=== PATIENT | male | born 1950 | race Caucasian/White ===

== ENCOUNTER 2020-09-30 18:43 | IRF | payer MEDICARE, OTHER, SELFPAY ==
[2020-09-30 18:40] VITALS: BP 168/87; PULSE 68; RESP 16; TEMP 35.9; O2SAT 96
--- NOTE | 2020-09-30 19:16 | ADMGEN ---
This patient, Nick Castro, was admitted to [facility] Room 225-01. Patient/family oriented to hospital policies and general routines including ID bracelet, bed and alarms, visiting hours, pain management, procedures, bathroom and other care routines, personal items, smoking policy, room service/diet, and visiting hours. Information on how to activate the Rapid Response Team has been discussed. Patient/Family are encouraged to report perceived risks to care and to ask questions if they do not understand what they are told or what they should do.
--- NOTE | 2020-09-30 19:33 | ADMGEN ---
This patient, Nick Castro, [facility]. Patient/family oriented to hospital policies and general routines including ID bracelet, bed and alarms, visiting hours, pain management, procedures, bathroom and other care routines, personal items, smoking policy, room service/diet, and visiting hours. Information on how to activate the Rapid Response Team has been discussed. Patient/Family are encouraged to report perceived risks to care and to ask questions if they do not understand what they are told or what they should do. TDialRNC
[2020-09-30 19:35] VITALS: BMI 24.0
[2020-09-30 21:23] LABS: Glucose Point of Care 268 mg/dl (65-105)
[2020-09-30 22:00] VITALS: BP 154/86; PULSE 64; RESP 16; TEMP 35.9; O2SAT 99
[2020-10-01 06:00] VITALS: BP 182/93; PULSE 73; RESP 16; TEMP 35.9; O2SAT 97
[2020-10-01 06:51] LABS: Glucose Point of Care 216 mg/dl (65-105)
[2020-10-01 08:00] VITALS: PULSE 73; RESP 16; O2SAT 97
[2020-10-01] MEDS: metFORMIN HCL 500 MG TABLET 1000 MG PO ×2 (09:39→16:56)
[2020-10-01 09:40] VITALS: PULSE 73
[2020-10-01] MEDS: hydroCHLOROthiazide 12.5 MG CAPSULE PO (09:40)
[2020-10-01] MEDS: CLOPIDOGREL BISULFATE 75 MG TABLET PO (09:40)
[2020-10-01] MEDS: glyBURIDE 2.5 MG TABLET PO ×2 (09:40→16:55)
[2020-10-01] MEDS: ASPIRIN 81 MG CHEWABLE TABLET PO (09:40)
[2020-10-01] MEDS: MULTIVITAMINS /C LUTEIN (CENTRUM SILVER) TABLET *BKC 1 TAB PO (09:40)
[2020-10-01] MEDS: atenoloL 25 MG TABLET PO (09:40)
[2020-10-01] MEDS: amLODIPine BESYLATE 2.5 MG TABLET PO (09:41)
[2020-10-01 12:03] LABS: Glucose Point of Care 377 mg/dl (65-105)
--- NOTE | 2020-10-01 13:00 | WPDREHABHP ---
H&P: HPI History of Present Illness Date/Time: 10/01/20 13:00 Chief Complaint: cva Narrative: HISTORY OF PRESENT ILLNESS: The patient's primary rehab impairment category is 0 1 stroke The etiologic diagnosis is left basal ganglia infarct I saw this patient [id number] on 10/01/2020 The patient is a 70-year-old male past medical history of anxiety, diabetes mellitus, hypertension, hepatitis-A, rectal dysfunction, peripheral neuropathy, prostatitis, and BPH who presented to [facility] on 09/28/2020 with right-sided weakness, facial droop, and dysarthria. The patient will cover on 10/03 in the morning with presentation of slurred speech and right-sided weakness at 9:30 a.m. the patient woke up and had poor motor movement. brought him to the emergency room. CT of the head was negative for intracranial abnormalities. CTA of the head did not show significant stenosis. Chest x-ray was negative. MRI of the brain showed infarct in left basal ganglia with no acute cranial hemorrhage. Tele neurology was consulted the patient was placed on aspirin Plavix and a statin. Speech therapy saw the patient and a bedside swallow approved the patient to be on a regular consistency diet with thin liquids. Patient continued to have right-sided weakness and dysarthria. COVID the patient has not traveled outside the [place] or had contact with someone who is ill that his travel outside the [place] in the past 21 days. Patient has not traveled to an area of the [place] that is experiencing no transmission the Coronavirus and has not had close personal contact with anyone that has COVID. Patient does not have a fever nor lower respiratory illness. Therapy was initiated at the acute facility and the patient transferred to us from [facility] on 09/30/2020 FALLS OR SURGERIES: The patient has had [no] major surgeries in the 100 days prior to admission. He has had falls in the past 6 months but none with injury PRIOR LEVEL OF FUNCTION: Eating was INDEPENDENT Oral Care was INDEPENDENT Toileting Hygiene was INDEPENDENT Shower/Bathing was INDEPENDENT Upper Body Dressing was INDEPENDENT Lower Body Dressing was INDEPENDENT Donning/[place] Footwear was INDEPENDENT Rolling Left and Right was INDEPENDENT Sit to Lying was INDEPENDENT Lying to Sitting was INDEPENDENT Sit to Stand was INDEPENDENT Bed to Chair Transfers was INDEPENDENT Toilet Transfers was INDEPENDENT Walking was INDEPENDENT >500 feet with NO DEVICE Wheelchair Mobility was NOT APPLICABLE PRIOR TO ADMISSION Stairs were INDEPENDENT CURRENT LEVEL OF FUNCTION: Eating was independent Oral Care was supervision or touching assistance Toileting Hygiene was partial to moderate assist Shower/Bathing was partial to moderate assist Upper Body Dressing was supervision or touching assist Lower Body Dressing was partial to moderate assist Donning/[place] Footwear was partial to moderate assist Rolling Left and Right was supervision or touching assist Sit to Lying was supervision or touching assist Lying to Sitting was supervision or touching assist Sit to Stand was partial to mod assist Bed to Chair Transfers were partial to mod assist Toilet Transfers were partial to mod assist Walking was 20 ft with a rolling walker and partial to mod assist Wheelchair Mobility was not test Stairs were not tested GOALS: Our therapists will evaluate the patient and establish the goals. However, upon pre-admission screening, the expected goals were to be [INDEPENDENT] with self-care, [INDEPENDENT] with transfers, and [INDEPENDENT] with functional mobility so that the patient can return home. ESTIMATED LENGTH OF STAY: [10-14 days] POTENTIAL BARRIERS TO DISCHARGE: [ [Family needs training.] [Severity of condition.] ACTIVE CO-MORBIDITIES PRESENT ON ADMISSION: Active co-morbidities include hypertension, right hemiplegia, dysarthria, diabetes with hyperglycemi
[2020-10-01 13:50] VITALS: BMI 24.0
[2020-10-01 14:00] VITALS: BP 173/83; PULSE 59; RESP 20; TEMP 36.4; O2SAT 100
--- NOTE | 2020-10-01 14:38 | PCNSR ---
On 10/01/20, the student, Erna Daniels, provided care and completed [facility] documentation on this patient. I have reviewed the student's documentation and agree with the findings.
--- NOTE | 2020-10-01 14:56 | RPD ---
INDIVIDUALIZED PLAN OF CARE FOR Nick Castro Brief Synthesis of Pre-Admission Screen, Post-Admission Evaluation and Therapy Evaluations: The patient presents to rehab with a focal 1.9 cm infarct left basal ganglia. Comorbidities include hypertension, right-sided weakness, facial droop, moderate dysarthria, hypertension, hypokalemia, diabetes mellitus with hyperglycemia, anxiety, erectile dysfunction, peripheral neuropathy, prostatitis, and BPH. The patient requires physician services for medical oversight, and coordination of care. Emotional needs will be monitored as depression is a common sequelae of stroke. The patient needs physician monitoring and treatment of right-sided weakness, facial droop, dysarthria, hypertension, hypokalemia, diabetes mellitus, monitoring for adverse reactions to new medications, and monitoring of infection. The patient requires nursing services for frequent neuro checks, anticoagulation therapy, medication management and education, pressure relief and skin care management, monitoring of labs, bowel and bladder training, diabetes management and education, and fall/safety precautions. Deficits include: ADLs, Balance, Cognition, Endurance, Family Training/Education, Mobility, ROM, Safety, Speech, Strength, and Transfers Camp Manager/Case Management for: Discharge Planning and Patient/Family Counseling Physical Therapy: 5 days per week for 60 minutes. Treatments may include: Therapeutic Exercise, Gait Training, Neuromuscular Re-education, Transfer Training, Community Reintegration, Bed Mobility, Patient/Family Education, Wheelchair Mobility Group Therapy/Concurrent Therapy Rationales: -Improve attention span during functional activities in a distracted environment. -Enhance problem solving and/or adequate judgment skills during functional activities in a distracted environment. -Promote increased safety awareness in a distracted environment to reduce fall risk with functional tasks, transfers, and ambulation to allow a more safe, self-sufficient return to the home environment. -Improve dynamic balance skills to promote safety and independence with functional activities in a distracted environment for maximum gain. Occupational Therapy: 5 days per week for 60 minutes. Treatments may include: Therapeutic Exercise, Therapeutic Activity, Cognitive Training, Self-Care Transfer Training, Community Reintegration, Home Management, Patient/Family Education, Wheelchair Mobility Training, Energy Conservation Training Group Therapy/Concurrent Therapy Rationales: -Allow therapist to observe and teach generalization and carry-over of skills learned in individual therapy. -Enhance problem solving and sequencing skills during therapeutic activities in a distracted environment. -Promote increased safety awareness in a realistic setting to reduce fall risk with functional tasks due to visual and verbal distractions. -Increase functional level with ADLs, ADL transfers and use of adaptive equipment through therapeutic activities with others while promoting safety to allow a more safe, self-sufficient return home. Speech Therapy: 5 days per week for 60 minutes. Treatments may include: Dysphasia Therapy, Speech/Language/Communication Therapy, Cognitive Training, Patient/Family Education Group Therapy/Concurrent Therapy - Rationale: -Allow therapist to observe and teach generalization and carry-over of skills learned in individual therapy. -Improve comprehension skills with complex or abstract ideas through discussion in a realistic setting. -Enhance problem solving skills with complex issues during activities in a distracted environment. -Promote increased memory skills and concentration in a distracted environment for a safe transition home. -Improve attention and focus with language/communication skills in a realistic and supportive therapeutic setting. -Allow for practice of expression of basic needs and ideas through functional activities with others.
[2020-10-01 16:32] LABS: Glucose Point of Care 126 mg/dl (65-105)
[2020-10-01 20:00] VITALS: PULSE 57; RESP 16; O2SAT 99
[2020-10-01 21:01] VITALS: BP 148/81; PULSE 57; RESP 16; TEMP 36.1; O2SAT 99
[2020-10-01] MEDS: ATORVASTATIN 40 MG TABLET PO (21:36)
[2020-10-01 22:29] LABS: Glucose Point of Care 102 mg/dl (65-105)
[2020-10-02 05:29] LABS: Anion Gap 6 mmol/L (8-16); Blood Urea Nitrogen 16 mg/dL (9-20); Carbon Dioxide 31 mmol/L (22-30); Chloride 101 mmol/L (98-107); Estimated CRCL calculation 75 ml/min; Estimated Glomerular Filt Rate > 60; Glucose 118 mg/dL (75-110); Potassium 3.7 mmol/L (3.4-5.0); Sodium 138 mmol/L (137-145)
[2020-10-02 05:35] LABS: Basophils Absolute Auto 0.1 K/mm3 (0.0-0.1); Basophils Percent Auto 0.7 % (0.2-1.2); Eosinophils Absolute Auto 0.4 K/mm3 (0-0.3); Eosinophils Percent Auto 5.2 % (0-4.4); Hematocrit 40.1 % (42.0-52.0); Hemoglobin 13.7 g/dL (14.0-18.0); Immature Granulocyte Absolute 0.03 K/mm3 (0.00-0.031); Immature Granulocyte Percent A 0.4 % (0-0.5); Lymphocytes Absolute Auto 2.29 K/mm3 (0.9-3.2); Lymphocytes Percent Auto 30.3 % (18.3-44.2); Mean Corpuscular HGB Conc 34.2 g/dl (32-36); Mean Corpuscular Hemoglobin 28.4 pg (26-34); Mean Corpuscular Volume 83.2 fl (80-100); Mean Platelet Volume 11.7 fl (7.4-10.4); Monocytes Absolute Auto 0.7 K/mm3 (0.1-0.6); Monocytes Percent Auto 9.7 % (2.6-8.5); Neutrophils Absolute Auto 4.1 K/mm3 (1.3-6.7); Neutrophils Percent Auto 53.7 % (45.5-73.1); Platelet Count Result 220 k/mm3 (150-375); Red Blood Count 4.82 M/mm3 (4.6-6.20); Red Cell Distribution Width 12.2 % (11.5-14.5); White Blood Count 7.6 K/mm3 (4.5-10.0)
[2020-10-02 05:52] VITALS: BP 144/72; PULSE 53; RESP 16; TEMP 35.8; O2SAT 100
[2020-10-02 06:52] LABS: Glucose Point of Care 151 mg/dl (65-105)
--- NOTE | 2020-10-02 08:47 | WPDNEURORHBP ---
Subjective Date/time seen: 10/02/20 08:47 Interval history: The etiologic diagnosis is left basal ganglia infarct The patient is a 70-year-old male past medical history of anxiety, diabetes mellitus, hypertension, hepatitis-A, rectal dysfunction, peripheral neuropathy, prostatitis, and BPH who presented to [facility] on 09/28/2020 with right-sided weakness, facial droop, and dysarthria. The patient will cover on 10/03 in the morning with presentation of slurred speech and right-sided weakness at 9:30 a.m. the patient woke up and had poor motor movement. brought him to the emergency room. CT of the head was negative for intracranial abnormalities. CTA of the head did not show significant stenosis. Chest x-ray was negative. MRI of the brain showed infarct in left basal ganglia with no acute cranial hemorrhage. Tele neurology was consulted the patient was placed on aspirin Plavix and a statin. Speech therapy saw the patient and a bedside swallow approved the patient to be on a regular consistency diet with thin liquids. Patient continued to have right-sided weakness and dysarthria. Therapy was initiated at the acute facility and the patient transferred to us from [facility] on 09/30/2020 Patient voices no complaints. Blood sugars are better. Review of Systems Review of Systems: All systems reviewed & are unremarkable except as noted in HPI and below Functional Status Ambulation Ability Ability to Ambulate 10 Feet: Standby Assistance Ability to Ambulate 50 Feet With 2 Turns: Contact Guard Ability to Ambulate 150 Feet: Contact Guard Ambulation Assistive Devices: None Transfers Ability Ability to Transfer In/Out of Chair: Contact Guard Exam Const: General: no acute distress HENMT: Other: Right facial droop is noted. External ocular muscles are intact. Speech is dysarthric. Neck: Neck: supple Cardio: Rate: regular rate Rhythm: regular rhythm GI: Auscultation: normal bowel sounds Skin: General skin exam: no rashes or lesions noted Neuro: Other: Patient demonstrates 4/5 strength on the right upper and lower extremities fine motor deficits are noted. Mild motor apraxia is present. Left upper and left lower extremity strength are 5/5 Psych: Affect: normal affect Objective Data Vital Signs Vital Signs: Vital Signs - 24 hr 10/01/20 09:40 10/01/20 14:00 10/01/20 20:00 Temperature 36.4 C Pulse Rate 73 59 L 57 L Respiratory Rate 20 16 Blood Pressure 173/83 H Pulse Oximetry 100 99 10/01/20 21:01 10/02/20 05:52 Temperature 36.1 C L 35.8 C L Pulse Rate 57 L 53 L Respiratory Rate 16 16 Blood Pressure 148/81 H 144/72 H Pulse Oximetry 99 100 Intake/Output Intake/Output: Intake & Output 09/29/20 09/30/20 10/01/20 10/02/20 23:59 23:59 23:59 23:59 Intake Total 720 Balance 720 Meds/Results Medications: Active Medications Generic Name Dose Route Start Last Admin Trade Name Freq PRN Reason Stop Dose Admin Acetaminophen 650 mg 09/30/20 23:00 Acetaminophen 325 Mg Tablet PO Q4H PRN Headache Amlodipine Besylate 2.5 mg 10/01/20 09:00 10/01/20 09:41 Amlodipine Besylate 2.5 Mg Tablet PO 2.5 mg QAM FILIBERTO Administration Aspirin 81 mg 10/01/20 08:00 10/01/20 09:40 Aspirin 81 Mg Chewable Tablet PO 81 mg DAILY@0800 FILIBERTO Administration Atenolol 25 mg 10/01/20 09:00 10/01/20 09:40 Atenolol 25 Mg Tablet PO 25 mg DAILY FILIBERTO Administration Atorvastatin Calcium 40 mg 10/01/20 22:20 10/01/20 21:36 Atorvastatin 40 Mg Tablet PO 40 mg HS FILIBERTO Administration Bisacodyl 5 mg 09/30/20 23:05 Bisacodyl 5 Mg Tablet Ec PO QAM PRN Constipation Chlorpromazine HCl 25 mg 09/30/20 22:40 Chlorpromazine Hcl 25 Mg Tablet PO Q12H PRN for hiccups Clopidogrel Bisulfate 75 mg 10/01/20 09:00 10/01/20 09:40 Clopidogrel Bisulfate 75 Mg Tablet PO 10/19/20 09:01 75 mg QAM [facility]
[2020-10-02 09:52] VITALS: PULSE 53
[2020-10-02] MEDS: ASPIRIN 81 MG CHEWABLE TABLET PO (09:52)
[2020-10-02] MEDS: amLODIPine BESYLATE 2.5 MG TABLET PO (09:52)
[2020-10-02] MEDS: atenoloL 25 MG TABLET PO (09:52)
[2020-10-02] MEDS: metFORMIN HCL 500 MG TABLET 1000 MG PO ×2 (09:52→17:47)
[2020-10-02] MEDS: glyBURIDE 2.5 MG TABLET PO ×2 (09:52→17:47)
[2020-10-02] MEDS: hydroCHLOROthiazide 12.5 MG CAPSULE PO (09:53)
[2020-10-02] MEDS: MULTIVITAMINS /C LUTEIN (CENTRUM SILVER) TABLET *BKC 1 TAB PO (09:53)
[2020-10-02] MEDS: CLOPIDOGREL BISULFATE 75 MG TABLET PO (09:53)
[2020-10-02 12:20] LABS: Glucose Point of Care 249 mg/dl (65-105)
[2020-10-02 14:00] VITALS: BP 143/73; PULSE 54; RESP 14; TEMP 36.2; O2SAT 100
[2020-10-02 17:08] LABS: Glucose Point of Care 206 mg/dl (65-105)
[2020-10-02 20:00] VITALS: PULSE 55; RESP 16; O2SAT 97
[2020-10-02] MEDS: ATORVASTATIN 40 MG TABLET PO (21:49)
[2020-10-02 21:54] LABS: Glucose Point of Care 194 mg/dl (65-105)
[2020-10-02 22:00] VITALS: BP 163/88; PULSE 55; RESP 16; TEMP 36.3; O2SAT 97
[2020-10-03 06:00] VITALS: BP 148/69; PULSE 55; RESP 16; TEMP 36.3; O2SAT 98
[2020-10-03 06:12] LABS: Glucose Point of Care 134 mg/dl (65-105)
--- NOTE | 2020-10-03 09:19 | WPDNEURORHBP ---
Subjective Date/time seen: 10/03/20 09:19 Interval history: The etiologic diagnosis is left basal ganglia infarct The patient is a 70-year-old male past medical history of anxiety, diabetes mellitus, hypertension, hepatitis-A, rectal dysfunction, peripheral neuropathy, prostatitis, and BPH who presented to [facility] on 09/28/2020 with right-sided weakness, facial droop, and dysarthria. The patient will cover on 10/03 in the morning with presentation of slurred speech and right-sided weakness at 9:30 a.m. the patient woke up and had poor motor movement. brought him to the emergency room. CT of the head was negative for intracranial abnormalities. CTA of the head did not show significant stenosis. Chest x-ray was negative. MRI of the brain showed infarct in left basal ganglia with no acute cranial hemorrhage. Tele neurology was consulted the patient was placed on aspirin Plavix and a statin. Speech therapy saw the patient and a bedside swallow approved the patient to be on a regular consistency diet with thin liquids. Patient continued to have right-sided weakness and dysarthria. Therapy was initiated at the acute facility and the patient transferred to us from [facility] on 09/30/2020 10/03/2020 Patient voices no complaints. Blood sugars are better. Nick demonstrates impulsivity and is at high risk of falls. Spoke with patient regarding safety and impulsivity related to his stroke. Review of Systems Review of Systems: All systems reviewed & are unremarkable except as noted in HPI and below Functional Status Ambulation Ability Ability to Ambulate 10 Feet: Standby Assistance Ability to Ambulate 50 Feet With 2 Turns: Contact Guard Ability to Ambulate 150 Feet: Contact Guard Ambulation Assistive Devices: None Transfers Ability Ability to Transfer In/Out of Chair: Contact Guard Exam Const: General: no acute distress HENMT: Other: Right facial droop is noted. External ocular muscles are intact. Speech is dysarthric. Heart rate and rhythm is regular. Lungs are clear to auscultation Neck: Neck: supple Cardio: Rate: regular rate Rhythm: regular rhythm GI: Auscultation: normal bowel sounds Skin: General skin exam: no rashes or lesions noted Neuro: Other: Patient demonstrates 4/5 strength on the right upper and lower extremities fine motor deficits are noted. Mild motor apraxia is present. Left upper and left lower extremity strength are 5/5. Ongoing safety concerns Psych: Affect: normal affect Objective Data Vital Signs Vital Signs: Vital Signs - 24 hr 10/02/20 09:52 10/02/20 14:00 10/02/20 20:00 Temperature 36.2 C L Pulse Rate 53 L 54 L 55 L Respiratory Rate 14 16 Blood Pressure 143/73 H Pulse Oximetry 100 97 10/02/20 22:00 10/03/20 06:00 Temperature 36.3 C L 36.3 C L Pulse Rate 55 L 55 L Respiratory Rate 16 16 Blood Pressure 163/88 H 148/69 H Pulse Oximetry 97 98 Intake/Output Intake/Output: Intake & Output 09/30/20 10/01/20 10/02/20 10/03/20 23:59 23:59 23:59 23:59 Intake Total 720 600 240 Balance 720 600 240 Meds/Results Medications: Active Medications Generic Name Dose Route Start Last Admin Trade Name Freq PRN Reason Stop Dose Admin Acetaminophen 650 mg 09/30/20 23:00 Acetaminophen 325 Mg Tablet PO Q4H PRN Headache Amlodipine Besylate 2.5 mg 10/01/20 09:00 10/02/20 09:52 Amlodipine Besylate 2.5 Mg Tablet PO 2.5 mg QAM FILIBERTO Administration Aspirin 81 mg 10/01/20 08:00 10/02/20 09:52 Aspirin 81 Mg Chewable Tablet PO 81 mg DAILY@0800 FILIBERTO Administration Atenolol 25 mg 10/01/20 09:00 10/02/20 09:52 Atenolol 25 Mg Tablet PO 25 mg DAILY FILIBERTO Administration Atorvastatin Calcium 40 mg 10/01/20 22:20 10/02/20 21:49 Atorvastatin 40 Mg Tablet PO 40 mg HS FILIBERTO Administration Bisacodyl 5 mg 09/30/20 23:05 Bisacodyl 5 Mg Tablet Ec PO QAM PRN Constipatio
[2020-10-03] MEDS: glyBURIDE 2.5 MG TABLET PO ×2 (09:30→17:46)
[2020-10-03] MEDS: ASPIRIN 81 MG CHEWABLE TABLET PO (09:30)
[2020-10-03] MEDS: metFORMIN HCL 500 MG TABLET 1000 MG PO ×2 (09:30→17:46)
[2020-10-03 09:31] VITALS: PULSE 55
[2020-10-03] MEDS: MULTIVITAMINS /C LUTEIN (CENTRUM SILVER) TABLET *BKC 1 TAB PO (09:31)
[2020-10-03] MEDS: hydroCHLOROthiazide 12.5 MG CAPSULE PO (09:31)
[2020-10-03] MEDS: atenoloL 25 MG TABLET PO (09:31)
[2020-10-03] MEDS: amLODIPine BESYLATE 2.5 MG TABLET PO (09:31)
[2020-10-03] MEDS: CLOPIDOGREL BISULFATE 75 MG TABLET PO (09:32)
[2020-10-03 11:45] LABS: Glucose Point of Care 297 mg/dl (65-105)
[2020-10-03 14:00] VITALS: BP 138/73; PULSE 64; RESP 16; TEMP 36; O2SAT 99
[2020-10-03 17:30] LABS: Glucose Point of Care 176 mg/dl (65-105)
[2020-10-03 20:32] LABS: Glucose Point of Care 184 mg/dl (65-105)
[2020-10-03] MEDS: ATORVASTATIN 40 MG TABLET PO (21:48)
[2020-10-03 22:00] VITALS: BP 154/77; PULSE 58; RESP 18; TEMP 36.1; O2SAT 98
[2020-10-04 06:00] VITALS: BP 151/82; PULSE 59; RESP 16; TEMP 36.3; O2SAT 100
[2020-10-04 06:19] LABS: Glucose Point of Care 153 mg/dl (65-105)
[2020-10-04] MEDS: MULTIVITAMINS /C LUTEIN (CENTRUM SILVER) TABLET *BKC 1 TAB PO (09:13)
[2020-10-04] MEDS: amLODIPine BESYLATE 2.5 MG TABLET PO (09:13)
[2020-10-04] MEDS: CLOPIDOGREL BISULFATE 75 MG TABLET PO (09:14)
[2020-10-04] MEDS: ASPIRIN 81 MG CHEWABLE TABLET PO (09:14)
[2020-10-04] MEDS: hydroCHLOROthiazide 12.5 MG CAPSULE PO (09:14)
[2020-10-04] MEDS: metFORMIN HCL 500 MG TABLET 1000 MG PO ×2 (09:14→17:23)
[2020-10-04 09:15] VITALS: PULSE 59
[2020-10-04] MEDS: glyBURIDE 2.5 MG TABLET PO ×2 (09:15→17:23)
[2020-10-04] MEDS: atenoloL 25 MG TABLET PO (09:15)
[2020-10-04 11:26] LABS: Glucose Point of Care 295 mg/dl (65-105)
[2020-10-04 14:00] VITALS: BP 137/78; PULSE 81; RESP 20; TEMP 36.2; O2SAT 100
[2020-10-04 17:02] LABS: Glucose Point of Care 150 mg/dl (65-105)
[2020-10-04 21:54] VITALS: BP 148/91; PULSE 66; RESP 14; TEMP 36.2; O2SAT 97
[2020-10-04] MEDS: ATORVASTATIN 40 MG TABLET PO (22:30)
[2020-10-05 05:59] VITALS: BP 161/87; PULSE 60; RESP 18; TEMP 36.3; O2SAT 97
[2020-10-05 06:49] LABS: Glucose Point of Care 170 mg/dl (65-105)
[2020-10-05 08:00] VITALS: PULSE 64; RESP 20; O2SAT 97
[2020-10-05 09:05] VITALS: PULSE 60
[2020-10-05] MEDS: glyBURIDE 2.5 MG TABLET PO ×2 (09:05→17:39)
[2020-10-05] MEDS: ASPIRIN 81 MG CHEWABLE TABLET PO (09:05)
[2020-10-05] MEDS: atenoloL 25 MG TABLET PO (09:05)
[2020-10-05] MEDS: CLOPIDOGREL BISULFATE 75 MG TABLET PO (09:06)
[2020-10-05] MEDS: metFORMIN HCL 500 MG TABLET 1000 MG PO ×2 (09:06→17:39)
[2020-10-05] MEDS: amLODIPine BESYLATE 2.5 MG TABLET PO (09:06)
[2020-10-05] MEDS: MULTIVITAMINS /C LUTEIN (CENTRUM SILVER) TABLET *BKC 1 TAB PO (09:07)
[2020-10-05] MEDS: hydroCHLOROthiazide 12.5 MG CAPSULE PO (09:07)
--- NOTE | 2020-10-05 11:37 | WPDNEURORHBP ---
Subjective Date/time seen: 10/05/20 11:37 Interval history: The etiologic diagnosis is left basal ganglia infarct The patient is a 70-year-old male past medical history of anxiety, diabetes mellitus, hypertension, hepatitis-A, erectile dysfunction, peripheral neuropathy, prostatitis, and BPH who presented to [facility] on 09/28/2020 with right-sided weakness, facial droop, and dysarthria. The patient woke up on 10/03 in the morning with presentation of slurred speech and right-sided weakness at 9:30 a.m. the patient woke up and had poor motor movement. brought him to the emergency room. CT of the head was negative for intracranial abnormalities. CTA of the head did not show significant stenosis. Chest x-ray was negative. MRI of the brain showed infarct in left basal ganglia with no acute cranial hemorrhage. Tele neurology was consulted the patient was placed on aspirin Plavix and a statin. Speech therapy saw the patient and a bedside swallow approved the patient to be on a regular consistency diet with thin liquids. Patient continued to have right-sided weakness and dysarthria. Therapy was initiated at the acute facility and the patient transferred to us from [facility] on 09/30/2020 10/03/2020 Patient voices no complaints. Blood sugars are better. Nick demonstrates impulsivity and is at high risk of falls. Spoke with patient regarding safety and impulsivity related to his stroke. 10/05/20 Patient seen during . Dysarthria persists.Patient lacks awareness of safety issues. Motor is recovering. Patient voices not complaints. Review of Systems Review of Systems: All systems reviewed & are unremarkable except as noted in HPI and below Functional Status Ambulation Ability Ability to Ambulate 10 Feet: Standby Assistance Ability to Ambulate 50 Feet With 2 Turns: Contact Guard Ability to Ambulate 150 Feet: Contact Guard Ambulation Assistive Devices: None Transfers Ability Ability to Transfer In/Out of Chair: Standby Assistance Exam Narrative: Exam Narrative: asymmetric face noted. Extraocular muscles are intact. Speech reveals dysarthria. Heart rate and rhythm is regular. Lungs are clear to auscultation. Left upper and left lower extremity strength are 4-5 right upper right lower extremity strength are 4- out of 5. [id number] transfers are at supervision to standby assistance. Objective Data Vital Signs Vital Signs: Vital Signs - 24 hr 10/04/20 14:00 10/04/20 21:54 10/05/20 05:59 Temperature 36.2 C L 36.2 C L 36.3 C L Pulse Rate 81 66 60 Respiratory Rate 20 14 18 Blood Pressure 137/78 148/91 H 161/87 H Pulse Oximetry 100 97 97 10/05/20 08:00 10/05/20 09:05 Temperature Pulse Rate 64 60 Respiratory Rate 20 Blood Pressure Pulse Oximetry 97 Intake/Output Intake/Output: Intake & Output 10/02/20 10/03/20 10/04/20 10/05/20 23:59 23:59 23:59 23:59 Intake Total 600 1080 720 240 Balance 600 1080 720 240 Meds/Results Medications: Active Medications Generic Name Dose Route Start Last Admin Trade Name Freq PRN Reason Stop Dose Admin Acetaminophen 650 mg 09/30/20 23:00 Acetaminophen 325 Mg Tablet PO Q4H PRN Headache Amlodipine Besylate 2.5 mg 10/01/20 09:00 10/05/20 09:06 Amlodipine Besylate 2.5 Mg Tablet PO 2.5 mg QAM FILIBERTO Administration Aspirin 81 mg 10/01/20 08:00 10/05/20 09:05 Aspirin 81 Mg Chewable Tablet PO 81 mg DAILY@0800 FILIBERTO Administration Atenolol 25 mg 10/01/20 09:00 10/05/20 09:05 Atenolol 25 Mg Tablet PO 25 mg DAILY FILIBERTO Administration Atorvastatin Calcium 40 mg 10/01/20 22:20 10/04/20 22:30 Atorvastatin 40 Mg Tablet PO 40 mg HS FILIBERTO Administration Bisacodyl 5 mg 09/30/20 23:05 Bisacodyl 5 Mg Tablet Ec PO QAM PRN Constipation Chlorpromazine HCl 25 mg 09/30/20 22:40 Chlorpromazine Hcl 25 Mg Tablet PO Q12H PRN for hiccups Clopidogrel Bisul
[2020-10-05 12:04] LABS: Glucose Point of Care 232 mg/dl (65-105)
[2020-10-05 14:00] VITALS: BP 142/79; PULSE 90; RESP 16; TEMP 35.8; O2SAT 100
[2020-10-05 16:55] LABS: Glucose Point of Care 243 mg/dl (65-105)
[2020-10-05 20:25] VITALS: PULSE 60; RESP 18; O2SAT 96
[2020-10-05] MEDS: ATORVASTATIN 40 MG TABLET PO (21:01)
[2020-10-05 21:51] VITALS: BP 156/77; PULSE 60; RESP 18; TEMP 36.2; O2SAT 96
[2020-10-05 22:11] LABS: Glucose Point of Care 186 mg/dl (65-105)
[2020-10-06 06:00] VITALS: BP 148/66; PULSE 60; RESP 16; TEMP 36; O2SAT 97
[2020-10-06 06:42] LABS: Glucose Point of Care 149 mg/dl (65-105)
[2020-10-06 08:00] VITALS: PULSE 60; RESP 16; O2SAT 97
[2020-10-06] MEDS: metFORMIN HCL 500 MG TABLET 1000 MG PO ×2 (10:06→17:05)
[2020-10-06 10:07] VITALS: PULSE 60
[2020-10-06] MEDS: atenoloL 25 MG TABLET PO (10:07)
[2020-10-06] MEDS: amLODIPine BESYLATE 2.5 MG TABLET PO (10:07)
[2020-10-06] MEDS: ASPIRIN 81 MG CHEWABLE TABLET PO (10:07)
[2020-10-06] MEDS: glyBURIDE 2.5 MG TABLET PO ×2 (10:07→17:05)
[2020-10-06] MEDS: CLOPIDOGREL BISULFATE 75 MG TABLET PO (10:08)
[2020-10-06] MEDS: hydroCHLOROthiazide 12.5 MG CAPSULE PO (10:08)
[2020-10-06] MEDS: MULTIVITAMINS /C LUTEIN (CENTRUM SILVER) TABLET *BKC 1 TAB PO (10:08)
--- NOTE | 2020-10-06 11:45 | WPDNEURORHBP ---
Subjective Date/time seen: 10/06/20 11:45 Interval history: The etiologic diagnosis is left basal ganglia infarct The patient is a 70-year-old male past medical history of anxiety, diabetes mellitus, hypertension, hepatitis-A, erectile dysfunction, peripheral neuropathy, prostatitis, and BPH who presented to [facility] on 09/28/2020 with right-sided weakness, facial droop, and dysarthria. The patient woke up on 10/03 in the morning with presentation of slurred speech and right-sided weakness at 9:30 a.m. the patient woke up and had poor motor movement. brought him to the emergency room. CT of the head was negative for intracranial abnormalities. CTA of the head did not show significant stenosis. Chest x-ray was negative. MRI of the brain showed infarct in left basal ganglia with no acute cranial hemorrhage. Tele neurology was consulted the patient was placed on aspirin Plavix and a statin. Speech therapy saw the patient and a bedside swallow approved the patient to be on a regular consistency diet with thin liquids. Patient continued to have right-sided weakness and dysarthria. Therapy was initiated at the acute facility and the patient transferred to us from [facility] on 09/30/2020 10/03/2020 Patient voices no complaints. Blood sugars are better. Nick demonstrates impulsivity and is at high risk of falls. Spoke with patient regarding safety and impulsivity related to his stroke. 10/05/20 Patient seen during . Dysarthria persists.Patient lacks awareness of safety issues. Motor is recovering. Patient voices not complaints. 10/06/2020 patient voices no complaints except for speech difficulties and mild right hemiplegia Review of Systems Review of Systems: All systems reviewed & are unremarkable except as noted in HPI and below Functional Status Ambulation Ability Ability to Ambulate 10 Feet: Independent Ability to Ambulate 50 Feet With 2 Turns: Independent Ability to Ambulate 150 Feet: Standby Assistance Ambulation Assistive Devices: None Transfers Ability Ability to Transfer In/Out of Chair: Standby Assistance Exam Narrative: Exam Narrative: asymmetric face noted. Extraocular muscles are intact. Speech reveals dysarthria. Heart rate and rhythm is regular. Lungs are clear to auscultation. Left upper and left lower extremity strength are 4-5 right upper right lower extremity strength are 4- out of 5. [id number] transfers are approaching independence. patient ambulates with a waddling gait. Patient's dynamic balance is good. Objective Data Vital Signs Vital Signs: Vital Signs - 24 hr 10/05/20 14:00 10/05/20 20:25 10/05/20 21:51 Temperature 35.8 C L 36.2 C L Pulse Rate 90 60 60 Respiratory Rate 16 18 18 Blood Pressure 142/79 H 156/77 H Pulse Oximetry 100 96 96 10/06/20 06:00 10/06/20 10:07 Temperature 36.0 C L Pulse Rate 60 60 Respiratory Rate 16 Blood Pressure 148/66 H Pulse Oximetry 97 Intake/Output Intake/Output: Intake & Output 10/03/20 10/04/20 10/05/20 10/06/20 23:59 23:59 23:59 23:59 Intake Total 1080 720 720 240 Balance 1080 720 720 240 Meds/Results Medications: Active Medications Generic Name Dose Route Start Last Admin Trade Name Freq PRN Reason Stop Dose Admin Acetaminophen 650 mg 09/30/20 23:00 Acetaminophen 325 Mg Tablet PO Q4H PRN Headache Amlodipine Besylate 2.5 mg 10/01/20 09:00 10/06/20 10:07 Amlodipine Besylate 2.5 Mg Tablet PO 2.5 mg QAM FILIBERTO Administration Aspirin 81 mg 10/01/20 08:00 10/06/20 10:07 Aspirin 81 Mg Chewable Tablet PO 81 mg DAILY@0800 FILIBERTO Administration Atenolol 25 mg 10/01/20 09:00 10/06/20 10:07 Atenolol 25 Mg Tablet PO 25 mg DAILY FILIBERTO Administration Atorvastatin Calcium 40 mg 10/01/20 22:20 10/05/20 21:01 Atorvastatin 40 Mg Tablet PO 40 mg HS FILIBERTO Administration Bisacodyl 5 mg 09/30/20 23:05 Bisacodyl 5 Mg Tablet Ec PO
[2020-10-06 12:05] LABS: Glucose Point of Care 196 mg/dl (65-105)
--- NOTE | 2020-10-06 13:44 | PCNFU ---
Nutrition Follow-Up Complete: Nutrition Diagnosis: Altered nutrition related labs related to history of diabetes as evidenced by a blood glucose level of 377. Nutrition Goal: Patient will consume 100% of his meals. Goal has been met, patient is consuming 100% of his meals. Nutrition recommendation: Continue with Diabetic Consistent Carbohydrate diet. Last recorded weight is 79.4 kg. Recommend obtaining new weight. Bowel Motility: Last documented on 10/04. Labs Reviewed: Last documented on 10/02 Hgb (13.7), Hct (40.1) Meds Noted: Norvasc, Tenormin, Lipitor, Dulcolax, Plavix, Colace, Micronase, Metformin, Multi Vitamins, Senna, Thorazine, Hydrochlorothiazide Additional Notes: Patient is enjoying his meals and has no concerns. Will follow up in 7 days.
[2020-10-06 14:00] VITALS: BP 146/78; PULSE 69; RESP 18; TEMP 36.5; O2SAT 96
--- NOTE | 2020-10-06 14:39 | PCNSR ---
On 10/06/20, the student, Erna Daniels, provided care and completed [facility] documentation on this patient. I have reviewed the student's documentation and agree with the findings.
[2020-10-06 16:37] LABS: Glucose Point of Care 162 mg/dl (65-105)
[2020-10-06 19:46] LABS: Glucose Point of Care 205 mg/dl (65-105)
[2020-10-06] MEDS: ATORVASTATIN 40 MG TABLET PO (20:51)
[2020-10-06 20:56] VITALS: BP 151/75; PULSE 60; RESP 16; TEMP 36.3; O2SAT 97
[2020-10-07 06:00] VITALS: BP 170/87; PULSE 60; RESP 16; TEMP 36.4; O2SAT 98
[2020-10-07 06:22] LABS: Glucose Point of Care 124 mg/dl (65-105)
[2020-10-07] MEDS: amLODIPine BESYLATE 2.5 MG TABLET PO (09:21)
[2020-10-07 09:22] VITALS: PULSE 60
[2020-10-07] MEDS: hydroCHLOROthiazide 12.5 MG CAPSULE PO (09:22)
[2020-10-07] MEDS: MULTIVITAMINS /C LUTEIN (CENTRUM SILVER) TABLET *BKC 1 TAB PO (09:22)
[2020-10-07] MEDS: CLOPIDOGREL BISULFATE 75 MG TABLET PO (09:22)
[2020-10-07] MEDS: metFORMIN HCL 500 MG TABLET 1000 MG PO ×2 (09:22→21:01)
[2020-10-07] MEDS: ASPIRIN 81 MG CHEWABLE TABLET PO (09:22)
[2020-10-07] MEDS: glyBURIDE 2.5 MG TABLET PO ×2 (09:22→21:02)
[2020-10-07] MEDS: atenoloL 25 MG TABLET PO (09:22)
--- NOTE | 2020-10-07 10:50 | WPDNEURORHBP ---
Subjective Date/time seen: 10/07/20 10:50 Interval history: The etiologic diagnosis is left basal ganglia infarct The patient is a 70-year-old male past medical history of anxiety, diabetes mellitus, hypertension, hepatitis-A, erectile dysfunction, peripheral neuropathy, prostatitis, and BPH who presented to [facility] on 09/28/2020 with right-sided weakness, facial droop, and dysarthria. The patient woke up on 10/03 in the morning with presentation of slurred speech and right-sided weakness at 9:30 a.m. the patient woke up and had poor motor movement. brought him to the emergency room. CT of the head was negative for intracranial abnormalities. CTA of the head did not show significant stenosis. Chest x-ray was negative. MRI of the brain showed infarct in left basal ganglia with no acute cranial hemorrhage. Tele neurology was consulted the patient was placed on aspirin Plavix and a statin. Speech therapy saw the patient and a bedside swallow approved the patient to be on a regular consistency diet with thin liquids. Patient continued to have right-sided weakness and dysarthria. Therapy was initiated at the acute facility and the patient transferred to us from [facility] on 09/30/2020 10/03/2020 Patient voices no complaints. Blood sugars are better. Nick demonstrates impulsivity and is at high risk of falls. Spoke with patient regarding safety and impulsivity related to his stroke. 10/05/20 Patient seen during . Dysarthria persists.Patient lacks awareness of safety issues. Motor is recovering. Patient voices not complaints. 10/06/2020 patient voices no complaints except for speech difficulties and mild right hemiplegia 10/07/20 patient was seen walking out of the bathroom without using his call light. Patient was reminded when he was placed in the bathroom to call the call light when done. Patient continues to lack safety awareness and follow through with safety. will be in for training Review of Systems Review of Systems: All systems reviewed & are unremarkable except as noted in HPI and below Functional Status Ambulation Ability Ability to Ambulate 10 Feet: Independent Ability to Ambulate 50 Feet With 2 Turns: Independent Ability to Ambulate 150 Feet: Standby Assistance Ambulation Assistive Devices: None Transfers Ability Ability to Transfer In/Out of Chair: Standby Assistance Exam Narrative: Exam Narrative: asymmetric face noted. Extraocular muscles are intact. Speech reveals dysarthria. Heart rate and rhythm is regular. Lungs are clear to auscultation. Left upper and left lower extremity strength are 4-5 right upper right lower extremity strength are 4- out of 5. [id number] transfers are approaching independence. patient ambulates with a waddling gait. Patient's dynamic balance is good. Objective Data Vital Signs Vital Signs: Vital Signs - 24 hr 10/06/20 14:00 10/06/20 20:56 10/07/20 06:00 Temperature 36.5 C 36.3 C L 36.4 C L Pulse Rate 69 60 60 Respiratory Rate 18 16 16 Blood Pressure 146/78 H 151/75 H 170/87 H Pulse Oximetry 96 97 98 10/07/20 09:22 Temperature Pulse Rate 60 Respiratory Rate Blood Pressure Pulse Oximetry Intake/Output Intake/Output: Intake & Output 10/04/20 10/05/20 10/06/20 10/07/20 23:59 23:59 23:59 23:59 Intake Total 720 720 720 240 Balance 720 720 720 240 Meds/Results Medications: Active Medications Generic Name Dose Route Start Last Admin Trade Name Freq PRN Reason Stop Dose Admin Acetaminophen 650 mg 09/30/20 23:00 Acetaminophen 325 Mg Tablet PO Q4H PRN Headache Amlodipine Besylate 2.5 mg 10/01/20 09:00 10/07/20 09:21 Amlodipine Besylate 2.5 Mg Tablet PO 2.5 mg QAM [facility] Administration Aspirin 81 mg 10/01/20 08:00 10/07/20 09:22 Aspirin 81 Mg Chewable Tablet PO 81 mg DAILY@0800 [facility] Administration Atenolol 25 mg 10/01/20 09:00 10/07/20 09:22 Atenolol 2
[2020-10-07 12:13] LABS: Glucose Point of Care 278 mg/dl (65-105)
[2020-10-07 14:00] VITALS: BP 156/73; PULSE 67; RESP 18; TEMP 36.4; O2SAT 99
[2020-10-07 16:42] LABS: Glucose Point of Care 159 mg/dl (65-105)
[2020-10-07] MEDS: ATORVASTATIN 40 MG TABLET PO (21:01)
[2020-10-07 21:07] LABS: Glucose Point of Care 269 mg/dl (65-105)
[2020-10-07 21:32] VITALS: BP 155/75; PULSE 64; RESP 16; TEMP 36.2; O2SAT 96
[2020-10-08 06:00] VITALS: BP 146/86; PULSE 55; RESP 16; TEMP 35.8; O2SAT 99
[2020-10-08 06:23] LABS: Glucose Point of Care 84 mg/dl (65-105)
[2020-10-08] MEDS: metFORMIN HCL 500 MG TABLET 1000 MG PO ×2 (10:21→17:30)
[2020-10-08] MEDS: atenoloL 25 MG TABLET PO (10:22)
[2020-10-08] MEDS: amLODIPine BESYLATE 2.5 MG TABLET PO (10:22)
[2020-10-08] MEDS: glyBURIDE 2.5 MG TABLET PO ×2 (10:22→17:30)
[2020-10-08] MEDS: CLOPIDOGREL BISULFATE 75 MG TABLET PO (10:22)
[2020-10-08] MEDS: ASPIRIN 81 MG CHEWABLE TABLET PO (10:22)
[2020-10-08] MEDS: hydroCHLOROthiazide 12.5 MG CAPSULE PO (10:23)
[2020-10-08] MEDS: MULTIVITAMINS /C LUTEIN (CENTRUM SILVER) TABLET *BKC 1 TAB PO (10:23)
[2020-10-08 12:14] LABS: Glucose Point of Care 232 mg/dl (65-105)
[2020-10-08 13:46] VITALS: BP 153/81; PULSE 65; RESP 20; TEMP 35.9; O2SAT 100
--- NOTE | 2020-10-08 16:50 | WPDNEURORHBP ---
Subjective Date/time seen: 10/08/20 16:50 Interval history: The etiologic diagnosis is left basal ganglia infarct The patient is a 70-year-old male past medical history of anxiety, diabetes mellitus, hypertension, hepatitis-A, erectile dysfunction, peripheral neuropathy, prostatitis, and BPH who presented to [facility] on 09/28/2020 with right-sided weakness, facial droop, and dysarthria. The patient woke up on 10/03 in the morning with presentation of slurred speech and right-sided weakness at 9:30 a.m. the patient woke up and had poor motor movement. brought him to the emergency room. CT of the head was negative for intracranial abnormalities. CTA of the head did not show significant stenosis. Chest x-ray was negative. MRI of the brain showed infarct in left basal ganglia with no acute cranial hemorrhage. Tele neurology was consulted the patient was placed on aspirin Plavix and a statin. Speech therapy saw the patient and a bedside swallow approved the patient to be on a regular consistency diet with thin liquids. Patient continued to have right-sided weakness and dysarthria. Therapy was initiated at the acute facility and the patient transferred to us from [facility] on 09/30/2020 10/03/2020 Patient voices no complaints. Blood sugars are better. Nick demonstrates impulsivity and is at high risk of falls. Spoke with patient regarding safety and impulsivity related to his stroke. 10/05/20 Patient seen during . Dysarthria persists.Patient lacks awareness of safety issues. Motor is recovering. Patient voices not complaints. 10/06/2020 patient voices no complaints except for speech difficulties and mild right hemiplegia 10/07/20 patient was seen walking out of the bathroom without using his call light. Patient was reminded when he was placed in the bathroom to call the call light when done. Patient continues to lack safety awareness and follow through with safety. will be in for training 10/08/20 Patient looking forward to going home. Review of Systems Review of Systems: All systems reviewed & are unremarkable except as noted in HPI and below Functional Status Ambulation Ability Ability to Ambulate 10 Feet: Independent Ability to Ambulate 50 Feet With 2 Turns: Independent Ability to Ambulate 150 Feet: Independent Ambulation Assistive Devices: None Transfers Ability Ability to Transfer In/Out of Chair: Independent Exam Narrative: Exam Narrative: asymmetric face noted. Extraocular muscles are intact. Speech reveals dysarthria. Heart rate and rhythm is regular. Lungs are clear to auscultation. Left upper and left lower extremity strength are 4-5 right upper right lower extremity strength are 4- out of 5. [id number] transfers are approaching independence. Gait is better with less sway. Patient's dynamic balance is good. Objective Data Vital Signs Vital Signs: Vital Signs - 24 hr 10/07/20 21:32 10/08/20 06:00 10/08/20 13:46 Temperature 36.2 C L 35.8 C L 35.9 C L Pulse Rate 64 55 L 65 Respiratory Rate 16 16 20 Blood Pressure 155/75 H 146/86 H 153/81 H Pulse Oximetry 96 99 100 Intake/Output Intake/Output: Intake & Output 10/05/20 10/06/20 10/07/20 10/08/20 23:59 23:59 23:59 23:59 Intake Total 720 720 720 480 Balance 720 720 720 480 Meds/Results Medications: Active Medications Generic Name Dose Route Start Last Admin Trade Name Freq PRN Reason Stop Dose Admin Acetaminophen 650 mg 09/30/20 23:00 Acetaminophen 325 Mg Tablet PO Q4H PRN Headache Amlodipine Besylate 2.5 mg 10/01/20 09:00 10/08/20 10:22 Amlodipine Besylate 2.5 Mg Tablet PO 2.5 mg QAM FILIBERTO Administration Aspirin 81 mg 10/01/20 08:00 10/08/20 10:22 Aspirin 81 Mg Chewable Tablet PO 81 mg DAILY@0800 FILIBERTO Administration Atenolol 25 mg 10/01/20 09:00 10/08/20 10:22 Atenolol 25 Mg Tablet PO 25 mg DAILY FILIBERTO Administration Atorvastatin Calciu
[2020-10-08 17:02] LABS: Glucose Point of Care 131 mg/dl (65-105)
[2020-10-08] MEDS: ATORVASTATIN 40 MG TABLET PO (21:07)
[2020-10-08 22:00] VITALS: BP 155/74; PULSE 62; RESP 16; TEMP 36.1; O2SAT 95
[2020-10-09 06:00] VITALS: BP 151/88; PULSE 63; RESP 16; TEMP 36.5; O2SAT 100
[2020-10-09 09:00] VITALS: PULSE 64
[2020-10-09] MEDS: atenoloL 25 MG TABLET PO (09:00)
[2020-10-09] MEDS: hydroCHLOROthiazide 12.5 MG CAPSULE PO (09:00)
[2020-10-09] MEDS: MULTIVITAMINS /C LUTEIN (CENTRUM SILVER) TABLET *BKC 1 TAB PO (09:00)
[2020-10-09] MEDS: ASPIRIN 81 MG CHEWABLE TABLET PO (09:00)
[2020-10-09] MEDS: CLOPIDOGREL BISULFATE 75 MG TABLET PO (09:00)
[2020-10-09] MEDS: metFORMIN HCL 500 MG TABLET 1000 MG PO (09:00)
[2020-10-09] MEDS: glyBURIDE 2.5 MG TABLET PO (09:00)
[2020-10-09] MEDS: amLODIPine BESYLATE 2.5 MG TABLET PO (09:00)
--- NOTE | 2020-10-09 09:41 | PM.DS ---
DS: Admitting Diagnosis Admitting Diagnosis Admitting Diagnosis: left basal ganglia infarct with mild right hemiplegia and mild dysarthria DS: Discharge Diagnosis Discharge Diagnosis (1) BPH (benign prostatic hyperplasia): Code(s): N40.0 - Benign prostatic hyperplasia without lower urinary tract symptoms Status: Acute (2) CVA (cerebral vascular accident): Code(s): I63.9 - Cerebral infarction, unspecified Status: Acute Assessment and Plan: patient is on aspirin 81 mg daily, Lipitor 40 mg q.h.s., Plavix 75 mg for total of 1 month last dose will be October 20. Patient to continue with apirin 81 mg daily. (3) Right hemiplegia: Code(s): G81.91 - Hemiplegia, unspecified affecting right dominant side Status: Acute Assessment and Plan: PT OT (4) Dysarthria: Code(s): R47.1 - Dysarthria and anarthria Status: Acute Assessment and Plan: patient is on a regular diet with thin liquids. Speech therapy (5) Diabetes mellitus: Code(s): E11.9 - Type 2 diabetes mellitus without complications Status: Acute Assessment and Plan: the patient is on glyburide 2.5 mg b.i.d. with meals. Metformin 1000 mg b.i.d. Blood sugars are improving. (6) Hypertension: Code(s): I10 - Essential (primary) hypertension Status: Acute Assessment and Plan: Norvasc 2.5 mg q.a.m., atenolol 25 mg daily, hydrochlorothiazide 12.5 mg p.o. q.a.m. DS: Summary Hospital Course Hospital Course: Interval history: The etiologic diagnosis is left basal ganglia infarct The patient is a 70-year-old male past medical history of anxiety, diabetes mellitus, hypertension, hepatitis-A, erectile dysfunction, peripheral neuropathy, prostatitis, and BPH who presented to [facility] on 09/28/2020 with right-sided weakness, facial droop, and dysarthria. The patient woke up on 10/03 in the morning with presentation of slurred speech and right-sided weakness at 9:30 a.m. the patient woke up and had poor motor movement. brought him to the emergency room. CT of the head was negative for intracranial abnormalities. CTA of the head did not show significant stenosis. Chest x-ray was negative. MRI of the brain showed infarct in left basal ganglia with no acute cranial hemorrhage. Tele neurology was consulted the patient was placed on aspirin Plavix and a statin. Speech therapy saw the patient and a bedside swallow approved the patient to be on a regular consistency diet with thin liquids. Patient continued to have right-sided weakness and dysarthria. Therapy was initiated at the acute facility and the patient transferred to us from [facility] on 09/30/2020 REHAB HOSPITAL COURSE: SAFETY: Patient needed reminders for safety. Nick demonstrated impulsivity during his rehab stay. was educated regarding impulsivity. HTN. Permissive hypertension was allowed during rehab. Follow-up with PCP regarding hypertensive management diabetes: Recommend on going management with PCP. Blood sugars did fluctuate in the acute rehab setting GOALS: Eating [INDEPENDENT] Oral Care [INDEPENDENT] Toileting Hygiene [INDEPENDENT] Shower/Bathing [INDEPENDENT] Upper Body Dressing [INDEPENDENT] Lower Body Dressing [INDEPENDENT] Donning/[place] Footwear [INDEPENDENT] Rolling Left and Right [INDEPENDENT] Sit to Lying [INDEPENDENT] Lying to Sitting [INDEPENDENT] Sit to Stand [INDEPENDENT] Bed to Chair Transfers [INDEPENDENT] Toilet Transfers [INDEPENDENT] Car Transfers [INDEPENDENT] Walking 10' [INDEPENDENT] Walking 50' with Two Turns [INDEPENDENT] Walking 150' [INDEPENDENT] Curb or Step [INDEPENDENT] 4 Steps [INDEPENDENT] 12 Steps [INDEPENDENT] Picking Up Object [INDEPENDENT] [Wheelchair Mobility 50'] not applicable [Wheelchair Mobility 150'] not applicable DISCHARGE PERFORMANCE: Eating [INDEPENDENT] Oral Care [INDEPENDENT] Toileting Hygiene [INDEPEND
[2020-10-09 11:35] LABS: Glucose Point of Care 114 mg/dl (65-105)
--- OUTSIDE RECORDS SUMMARY | 2020-10-11 11:21 | XMS_ITS ---
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) Unavailable Reason for Referral Imaging (Routine) Status Reason Specialty Diagnoses / Procedures Referred By Jorgito holliday To Contact Contact Pending Review RADIOLOGY Procedures Kelli Becerril USE ECHOCARDIOGRAM W M, REFRIGERATION PLANT CORK INSULATOR CON [address] [place] [address] Electronically signed by Kelli Becerril APRN atImaging (Emergency) Status Reason Specialty Diagnoses / Referred By Referred To Procedures Contact Contact New Request RADIOLOGY Procedures Kelli Becerril, MRI BRAIN WWO CON REFRIGERATION PLANT CORK INSULATOR [address]
== END 2020-10-09 10:35 | disposition home or self-care (01) | DRG 57 ==
PROVIDERS: Admitting Provider Physical Medicine & Rehabilitation; PCP Family Medicine Sports Medicine; Visit Provider Physical Medicine & Rehabilitation
DX: I69.351 Hemiplegia and hemiparesis following cerebral infarction affecting right dominant side (principal); I69.322 Dysarthria following cerebral infarction; I69.392 Facial weakness following cerebral infarction; E11.42 Type 2 diabetes mellitus with diabetic polyneuropathy; E11.65 Type 2 diabetes mellitus with hyperglycemia; I10 Essential (primary) hypertension; N40.0 Benign prostatic hyperplasia without lower urinary tract symptoms; Z79.84 Long term (current) use of oral hypoglycemic drugs
CPT/HCPCS: 36415; 80048; 82948; 85025; 92507; 92523; 97110; 97116; 97129; 97130; 97161; 97165; 97530; 97535; A9270